=== PATIENT | male | born 1980 | race Caucasian/White ===

== ENCOUNTER 2021-10-23 11:22 | Emergency (ER) | payer OTHER ==
[2021-10-23 15:10] LABS: ALBUMIN 2.9 g/dL (3.4-5.0); BILIRUBIN - TOTAL 0.9 mg/dL (0.2-1.0); BUN/CREAT RATIO (CALC) 17.1 RATIO; CREATININE 0.7 mg/dL (0.67-1.17); GLOBULIN (CALCULATION) 4.6 g/dL; POTASSIUM 3.9 mmol/L (3.5-5.1); TOTAL PROTEIN 7.5 g/dL (6.4-8.2)
[2021-10-23 15:11] LABS: BASOPHIL 0.5 % (0-2); EOSINOPHIL 3.1 % (0-5); HCT 34.5 % (42.0-52.0); HGB 10.6 g/dl (13.2-18.0); MCHC 30.7 g/dL (32.0-36.0); MONOCYTE 13.8 % (0-12); NEUTROPHIL 59.1 % (41-80); NRBC 0; RBC 3.79 M/uL (4.70-6.00)
[2021-10-23 15:12] LABS: PLT 38 K/uL (150-400); RDW 27.1 % (11.5-14.0)
[2021-10-23 16:07] LABS: INR 1.24 (0.9-1.2); PROTHROMBIN TIME 14.9 SECONDS (11.8-13.4)
[2021-10-24 09:11] LABS: HBSAG SCREEN Positive (Negative); HEP A AB, IGM Negative (Negative); HEP B CORE AB, IGM Negative (Negative); HEP C VIRUS AB >11.0 (0.0-0.9)
== END 2021-10-23 16:33 | disposition home or self-care (01) ==
LOC: FER 11:22
PROVIDERS: Nurse Practitioner Family
DX: D69.6 Thrombocytopenia, unspecified (principal); D72.819 Decreased white blood cell count, unspecified
CPT/HCPCS: 36415; 80053; 80074; 85025; 85610; 86850; 86900; 86901; 99284; J7030